=== PATIENT | female | born 1990 | race Caucasian/White ===

== ENCOUNTER 2017-10-03 18:09 | Emergency (ER) | payer OTHER ==
[2017-10-03 18:15] VITALS: BP 110/57; PULSE 63; TEMP 97.3; BMI 18.9
--- NOTE | 2017-10-03 18:46 | PDOC ---
Attending Attestation - Resident Resident Name: Dyllan Metz - ED Attending Attestation I have performed the following: I have examined & evaluated the patient, The case was reviewed & discussed with the resident, I agree w/resident's findings & plan, Exceptions are as noted - HPI HPI: 10/03/17 20:54 The patient is a 26 year old female approx. 18-19 weeks (), with no significant past medical history, who presents to the emergency department with, approx. 3 days of intermittent right sided abdominal discomfort. The patient describes the abdominal pain as a general discomfort. Reports discomfort is located just laterally to umbulicus on the R and does not radiate. Discomfort is not triggered by anything. Patient reports she has been eating regularly. However, she reports associated symptoms of constipation with her last bowel movement approx. four days ago, however states she normally has a BM every 3-4 days. Patient reports recent vaginal discharge described as a clear mucus. She reports being diagnosed with chlamydia in the past. She denies recent fevers, chills, headache or dizziness. She denies recent nausea, vomit, or diarrhea. She denies recent dysuria, frequency, urgency or hematuria. She denies recent chest pain or shortness of breath. Allergies: NKA Past surgical history: None reported. Primary Care Physician: Dr. Tracy Fraser - Physicial Exam PE: 10/03/17 20:55 GENERAL: Awake, alert, and fully oriented, in no acute distress HEAD: No signs of trauma EYES: PERRLA, EOMI, sclera anicteric, conjunctiva clear ENT: Auricles normal inspection, hearing grossly normal, nares patent, oropharynx clear without exudates. Moist mucosa NECK: Normal ROM, supple, no lymphadenopathy, JVD, or masses LUNGS: Breath sounds equal, clear to auscultation bilaterally. No wheezes, and no crackles HEART: Regular rate and rhythm, normal S1 and S2, no murmurs, rubs or gallops ABDOMEN: gravid uterus, fundus at about 1-2 cm below the umbulicus, completely nontender, normoactive bowel sounds. No guarding, no rebound. No masses PHYSICIAN PRACTICE MARKET MANAGER: see resident exam EXTREMITIES: Normal range of motion, no edema. No clubbing or cyanosis. No cords, erythema, or tenderness NEUROLOGICAL: Normal speech, cranial nerves intact, negative pronator drift, 5/ 5 strength in all 4 extremities, normal sensation to light touch in all 4 extremities, normal cerebellar exam, normal gait, normal reflexes and tone SKIN: Warm, Dry, normal turgor, no rashes or lesions noted. - Medical Decision Making 10/03/17 19:38 26yo F approx 18-19 weeks p/w R sided abdominal discomfort. Vitals wnl , exam unremarkable with no abdominal ttp. DDx includes UTI given location of pain vs STI given vaginal DC and hx of chlamydia vs ovarian pathology vs constipation vs complication of . Appendicitis also a thought, although pain is not in the RLQ and abd exam with no ttp. Will check labs, US, and UA and perform serial abd exams. Laboratory Results - last 24 hr 10/03/17 10/03/17 10/03/17 19:04 19:04 19:04 WBC 10.7 H RBC 4.60 Hgb 14.1 Hct 42.3 MCV 92.0 MCH 30.6 MCHC 33.2 RDW 13.2 Plt Count 211 MPV 8.7 Neutrophils % 75.8 Lymphocytes % 17.8 Monocytes % 5.4 Eosinophils % 0.6 Basophils % 0.4 PT with INR 10.90 INR 0.96 Sodium 138 Potassium 3.2 L Chloride 101 Carbon Dioxide 27 Anion Gap 10 BUN 6 L Creatinine 0.6 Creat Clearance w eGFR > 60 Random Glucose 59 L Calcium 9.0 Total Bilirubin 0.3 AST 21 ALT 17 Alkaline Phosphatase 82 Total Protein 8.3 H Albumin 3.8 Lipase 115 Urine Color Urine Appearance Urine pH Ur Specific [place] Urine Protein Urine Glucose (UA) Urine Ketones Urine Blood Urine Nitrite Urine Bilirubin Urine Urobilinogen Ur Leukocyte Esterase Urine WBC (Auto) Urine RBC (Auto) Ur Epithelial Cells Urine Bacteria Urine Mucus Blood Type Antibody Screen 10/03/17 10/03/17 19:04 19:20 WBC RBC Hgb Hct MCV MCH MCHC RDW Plt Count MPV Neutrophils % Lymphocytes % Monocytes % Eosinophils % Basophils % PT with INR INR Sodium Potassium Chloride Carbon Dioxide Anion Gap BUN Creatinine Creat Clearance w eGFR Random Glucose Calcium Total Bilirubin AST ALT Alkaline Phosphatase Total Protein Albumin Lipase Urine Color Ltyellow Urine Appearance Clear Urine pH 6.0 Ur Specific [place] 1.017 Urine Protein Negative Urine Glucose (UA) Negative Urine Ketones Negative Urine Blood Negative Urine Nitrite Negative Urine Bilirubin Negative Urine Urobilinogen 2.0 H Ur Leukocyte Esterase 2+ H Urine WBC (Auto) 5 Urine RBC (Auto) <1 Ur Epithelial Cells Rare Urine Bacteria Rare Urine Mucus Few Blood Type A POSITIVE Antibody Screen Negative 10/03/17 21:03 Labs with leukocytosis to 10.7 likely wnl in , otherwise labs normal. US wnl. UA with 2+ LE and 5 WBCs and rare bacteria therefore will treat with macrobid. Repeat abd exam x2 with no ttp. Discussed with patient the small chance that this could be appendicitis, but since we have another possible reason for her pain (UTI), that UTI is more likely. Advised pt that if discomfort becomes much worse, or migrates to RLQ or she develops fevers, chills , N/V/D that she should return immediately for further evaluation. She expresses understanding of the plan and requests DC. I discussed the physical exam findings, ancillary test results and final diagnoses with the patient. I answered all of the patient's questions. The patient was satisfied with the care received and felt comfortable with the discharge plan and treatment plan. The patient will call their primary care physician within 24 hours to arrange follow-up and will return to the Emergency Department with any new, persistent or worsening symptoms.
[2017-10-03] MEDS ORDERED: ACETAMINOPHEN 650 MG/20.3 ML ORAL SOLUTION (CUPS) ONE (19:00)
[2017-10-03] MEDS ORDERED: ACETAMINOPHEN 325 MG TABLET (FP) PO ONE (19:06)
[2017-10-03 19:11] LABS: BASO % 0.4 % (0-2.0); EOS % 0.6 % (0-4.5); HEMATOCRIT 42.3 % (32.4-45.2); HEMOGLOBIN 14.1 GM/dL (10.7-15.3); LYMPH % 17.8 % (8-40); MCH 30.6 pg (25.7-33.7); MCHC 33.2 g/dl (32.0-36.0); MEAN PLT VOLUME 8.7 fl (7.5-11.1); MONO % 5.4 % (3.8-10.2); NEUT % 75.8 % (42.8-82.8); PLATELET COUNT 211 K/MM3 (134-434); RDW 13.2 % (11.6-15.6); WHITE BLOOD COUNT 10.7 K/mm3 (4.0-10.0)
[2017-10-03 19:38] LABS: URINE APPEARANCE CLEAR; URINE BILIRUBIN NEGATIVE (NEGATIVE); URINE BLOOD NEGATIVE (NEGATIVE); URINE COLOR LTYELLOW; URINE GLUCOSE (UA) NEGATIVE (NEGATIVE); URINE KETONE NEGATIVE (NEGATIVE); URINE NITRITE NEGATIVE (NEGATIVE); URINE PROTEIN NEGATIVE (NEGATIVE)
[2017-10-03 19:39] LABS: URINE LEUK ESTERASE 2+ (NEGATIVE)
[2017-10-03 19:40] LABS: EPI CELLS RARE /HPF (FEW); URINE BACTERIA RARE /hpf (NONE SEEN); URINE MUCUS FEW
[2017-10-03 19:51] LABS: INR 0.96 (0.82-1.09); PROTHROMBIN TIME (PATIENT) 10.9 SEC (9.98-11.88)
[2017-10-03 20:10] LABS: ALBUMIN 3.8 g/dl (3.4-5.0); ANION GAP 10 (8-16); BLOOD UREA NITROGEN 6 mg/dL (7-18); CHLORIDE 101 mmol/L (98-107); CO2 27 mmol/L (21-32); CREATININE 0.6 mg/dL (0.55-1.02); GLUCOSE,RANDOM 59 mg/dL (74-106); LIPASE 115 U/L (73-393); POTASSIUM 3.2 mmol/L (3.5-5.1); SGOT/AST 21 U/L (15-37); SODIUM 138 mmol/L (136-145); TOT PROT 8.3 g/dl (6.4-8.2)
--- NOTE | 2017-10-03 20:18 | PDOC ---
History of Present Illness - General Chief Complaint: Pain Stated Complaint: 18 wks preg ABD PAIN Time Seen by Provider: 10/03/17 18:25 History Source: Patient Exam Limitations: No Limitations - History of Present Illness Initial Comments: 10/03/17 20:12 Patient is a 26F who is 18wks by ultrasound here today complaining of right sided abdominal pain for the past 2 days. She describes the pain as a discomfort that waxes and wanes. She's coming in today because it' s worse and lasting longer. She is also complaining of associated constipation, saying her last bowel movement was 4 days ago. She states that this is normal for her. She denies nausea, vomiting, decreased po intake, fevers and chills. She denies pain with urination. She denies vaginal bleeding, but states that she has had some clear vaginal discharge. Denies pelvic pain. Patient has OB follow up - Dr Garcia in [place]. Past History - Past Medical History Allergies/Adverse Reactions: Allergies Allergy/AdvReac Type Severity Reaction Status Date / Time No Known Allergies Allergy Verified 10/03/17 18:10 Home Medications: Ambulatory Orders Nitrofurantoin Monohyd/M-Cryst [Nitrofurantoin [place]-Mcr 100 mg] 100 mg PO BID # 14 capsule 10/03/17 COPD: No - Suicide/Smoking/Psychosocial Hx Smoking History: Never smoked Have you smoked in the past 12 months: No Information on smoking cessation initiated: No Hx Alcohol Use: No Drug/Substance Use Hx: No Substance Use Type: None Review of Systems - Review of Systems Comments:: 10/03/17 20:17 GENERAL/CONSTITUTIONAL: No fever or chills. No weakness. HEAD, EYES, EARS, NOSE AND THROAT: No change in vision. No sore throat. CARDIOVASCULAR: No chest pain or shortness of breath RESPIRATORY: No cough, wheezing, or hemoptysis. GASTROINTESTINAL: No nausea, vomiting, diarrhea. Positive for constipation. GENITOURINARY: No dysuria, frequency, or change in urination. MUSCULOSKELETAL: No joint or muscle swelling or pain. No neck or back pain. SKIN: No rash NEUROLOGIC: No headache, vertigo, loss of consciousness, or change in strength/ sensation. ENDOCRINE: No increased thirst. No abnormal weight change HEMATOLOGIC/LYMPHATIC: No anemia, easy bleeding, or history of blood clots. ALLERGIC/IMMUNOLOGIC: No hives or skin allergy. *Physical Exam - Vital Signs Last Vital Signs Temp Pulse Resp BP Pulse Ox 97.3 F L 63 18 110/57 100 10/03/17 18:11 10/03/17 18:11 10/03/17 18:11 10/03/17 18:11 10/03/17 18:11 - Physical Exam Comments: 10/03/17 20:18 GENERAL: Awake, alert, and fully oriented, in no acute distress HEAD: No signs of trauma, normocephalic, atraumatic EYES: PERRLA, EOMI, sclera anicteric, conjunctiva clear ENT: Auricles normal inspection, hearing grossly normal, nares patent, oropharynx clear without exudates. Moist mucosa LUNGS: No distress, speaks full sentences, clear to auscultation bilaterally HEART: Regular rate and rhythm, normal S1 and S2, no murmurs, rubs or gallops, peripheral pulses normal and equal bilaterally. ABDOMEN: Gravid uterus 2cm below umbilicus , nontender, normoactive bowel sounds. No guarding, no rebound. No masses EXTREMITIES: Normal inspection, Normal range of motion, no edema. No clubbing or cyanosis. NEUROLOGICAL: Cranial nerves II through XII grossly intact. Normal speech, normal gait, no focal sensorimotor deficits SKIN: Warm, Dry, normal turgor, no rashes or lesions noted. PELVIC: Normal external genitalia, no cmt, closed cervix, small amount of white discharge, no blood ED Treatment Course - LABORATORY CBC & Chemistry Diagram: 10/03/17 19:04 10/03/17 19:04 - ADDITIONAL ORDERS Additional order review: Laboratory Results 10/03/17 10/03/17 10/03/17 19:20 19:04 19:04 PT with INR 10.90 INR 0.96 Urine Color Ltyellow Urine Appearance Clear Urine pH 6.0 Ur Specific [place] 1.017 Urine Protein Negative Urine Glucose (UA) Negative Urine Ketones Negative Urine Blood Negative Urine Nitrite Negative Urine Bilirubin Negative Urine Urobilinogen 2.0 H Ur Leukocyte Esterase 2+ H Urine WBC (Auto) 5 Urine RBC (Auto) <1 Ur Epithelial Cells Rare Urine Bacteria Rare Urine Mucus Few Blood Type A POSITIVE Antibody Screen Negative 10/03/17 19:04 RBC 4.60 MCV 92.0 MCHC 33.2 RDW 13.2 MPV 8.7 Neutrophils % 75.8 Lymphocytes % 17.8 Monocytes % 5.4 Eosinophils % 0.6 Basophils % 0.4 - RADIOLOGY Radiology Studies Ordered: Category Date Time Status OB LIMITED US [US] Stat Ultrasound 10/03/17 19:11 Ordered TRANSVAGINAL ULTRASOUND US [US] Stat Ultrasound 10/03/17 18:44 Ordered - Medications Given in the ED: ED Medications Discontinued Medications Generic Name Dose Route Start Last Admin Trade Name Danae PRN Reason Stop Dose Admin Acetaminophen 650 mg 10/03/17 19:06 10/03/17 19:15 Tylenol - PO 10/03/17 19:07 650 mg ONCE ONE Administration Medical Decision Making - Medical Decision Making 10/03/17 20:18 Patient is 26F here today complaining of right sided abdominal pain. Vital signs stable and normal. Physical exam not remarkable. DDx includes, but is not limited to: abdominal pain related to , threatened , ovarian torsion, appendicitis, uti. Will evaluate with abdominal labs, type and screen, coags, transvaginal ultrasound, ob transabdominal ultrasound. 10/03/17 20:23 Laboratory Tests 10/03/17 10/03/17 19:04 19:20 WBC 10.7 H Hgb 14.1 Hct 42.3 Plt Count 211 Ur Leukocyte Esterase 2+ H Urine WBC (Auto) 5 Urine Bacteria Rare CBC normal. CMP shows K of 3.2. UA shows UTI, will treat with macrobid. 10/03/17 20:55 On serial abdominal exams, patient has remained nontender in her abdomen. Discussed risk of possible appendicitis given location of pain, but thought it unlikely given patient's examination. Return precautions given. Patient has good outpatient follow up, will follow up this week. *DC/Admit/Observation/Transfer Diagnosis at time of Disposition: Abdominal pain affecting - Discharge Dispostion Disposition: HOME Condition at time of disposition: Good Admit: No - Prescriptions Prescriptions: Nitrofurantoin Monohyd/M-Cryst [Nitrofurantoin [place]-Mcr 100 mg] 100 mg PO BID # 14 capsule - Referrals Referrals: Tracy Fraser MD [Primary Care Provider] - - Patient Instructions Printed Discharge Instructions: DI for Abdominal Pain -- Early Additional Instructions: Please return if you have any new, worsening or concerning symptoms, especially fever, vomiting, and increased abdominal pain. Please call to make an appointment with your primary care physician and obgyn physician on Thursday. - Post Discharge Activity
[2017-10-03 20:22] LABS: ALK PHOS 82 U/L (45-117); BILIRUBIN,TOTAL 0.3 mg/dL (0.2-1.0); SGPT/ALT 17 U/L (12-78)
[2017-10-03] MEDS ORDERED: NITROFURANTOIN MACROCRYSTAL 50 MG CAPSULE (FP) PO SCH (20:45)
[2017-10-03] MEDS ORDERED: POTASSIUM CHLORIDE TABS 20 MEQ TABLET.ER (FP) PO ONE ×2 (20:47→21:04)
[2017-10-03] MEDS ORDERED: NITROFURANTOIN MACROCRYSTAL 50 MG CAPSULE (FP) ONE (21:03)
[2017-10-03] MEDS ORDERED: POTASSIUM CHLORIDE TABS 10 MEQ TABLET.ER (FP) ONE (21:04)
== END 2017-10-03 21:13 | disposition home or self-care (01) ==
LOC: JER 18:09
DX: O26.892 Other specified pregnancy related conditions, second trimester (principal); O23.42 Unspecified infection of urinary tract in pregnancy, second trimester; Z3A.18 18 weeks gestation of pregnancy
CPT/HCPCS: 36415; 76815; 76830-TC; 80053; 81003; 81015; 83690; 85025; 85610; 86850; 86900; 86901; 87491; 87591; 99282-25

== ENCOUNTER 2018-02-10 20:05 | Inpatient (IN) | payer OTHER ==
[~2018-02-10 20:05] MED LIST: DINOPROSTONE 10 MG VAGINAL SUPPOSITORY VG ONE
[2018-02-10] MEDS: DEXTROSE 5%-LACTATED RINGERS 1,000 ML IV SCH (20:35)
[2018-02-10 21:29] VITALS: BMI 22.8
[2018-02-10 21:45] LABS: BASO % 0.3 % (0-2.0); EOS % 0.2 % (0-4.5); HEMATOCRIT 34.1 % (32.4-45.2); HEMOGLOBIN 11.5 GM/dL (10.7-15.3); LYMPH % 18.7 % (8-40); MCH 31.4 pg (25.7-33.7); MCHC 33.9 g/dl (32.0-36.0); MEAN CELL VOLUME 92.7 fl (80-96); MEAN PLT VOLUME 10.1 fl (7.5-11.1); MONO % 8.5 % (3.8-10.2); NEUT % 72.3 % (42.8-82.8); PLATELET COUNT 139 K/MM3 (134-434); RBC 3.67 M/mm3 (3.60-5.2); RDW 13.6 % (11.6-15.6); WHITE BLOOD COUNT 6.6 K/mm3 (4.0-10.0)
[2018-02-10] MEDS ORDERED: TUBERCULIN PPD 5 TU/0.1ML SYRINGE (IN PATIENT USE ONLY) ID ONE (21:45)
[2018-02-10] MEDS ORDERED: PROMETHAZINE HCL 25 MG/1 ML VIAL IVPUSH ONE (21:57)
[2018-02-10] MEDS ORDERED: BUTORPHANOL TARTRATE 1 MG/ML VIAL IVPB ONE (21:57)
--- NOTE | 2018-02-10 22:05 | PN ---
Progress Note (short form) - Note Progress Note: 27 y/o with SIUP at 37 weeks here with complaints of LOF. Pt grossly ruptured. As laborist production supervisor off shift, was asked to place cervidil for IOL. Cervix /-3 and membranes grossly ruptured for clear fluid. FHTS cat 1. Cervidil placed at this time, for reassess in 12 hours.
[2018-02-10 22:07] LABS: INR 0.95 (0.82-1.09); PROTHROMBIN TIME (PATIENT) 10.7 SEC (9.7-13.0)
[2018-02-10 22:10] LABS: ACTIVATED PTT 24.2 SECONDS (26.9-34.4)
[2018-02-10 22:17] LABS: ANION GAP 7 (8-16); BLOOD UREA NITROGEN 6 mg/dL (7-18); CALCIUM 8.3 mg/dL (8.5-10.1); CHLORIDE 106 mmol/L (98-107); CO2 26 mmol/L (21-32); CREATININE 0.6 mg/dL (0.55-1.02); GLUCOSE,RANDOM 123 mg/dL (74-106); POTASSIUM 3.7 mmol/L (3.5-5.1); SODIUM 139 mmol/L (136-145)
--- NOTE | 2018-02-10 23:08 | HP ---
Past Medical History - Admission Chief Complaint: Leaking fluid since 7:30 pm History of Present Illness: 27 y/o with SIUP at 37 weeks presents with leaking fluid since 7:30 pm. No contractions. +FM. uncomplicated. Medical history +for Scoliosis. Pt with normal in 2015. History Source: Patient, Medical Record Limitations to Obtaining History: No Limitations - Past Medical History Cardiovascular: No: HTN, Hyperlipdemia Gastrointestinal: No: GERD Renal/: No: UTI Reproductive: No: PID, Polycystic Ovary Syndrome ...: 2 ...Para: 1 ...Term: 1 ...EDC by Sono: 03/03/18 Infectious Disease: No: HIV Psych: No: Bipolar, Depression - Past Surgical History Past Surgical History: Yes: None Hx Myomectomy: No Hx Transabdominal Cerclage: No - Smoking History Smoking history: Never smoked Have you smoked in the past 12 months: No - Alcohol/Substance Use Hx Alcohol Use: No - Social History History of Recent Travel: No Home Medications - Allergies Allergies/Adverse Reactions: Allergies Allergy/AdvReac Type Severity Reaction Status Date / Time No Known Allergies Allergy Verified 10/03/17 18:10 - Home Medications Home Medications: Ambulatory Orders Vitamins (Sjr) - 1 tab PO DAILY 01/30/18 Review of Systems - Review of Systems Constitutional: reports: No Symptoms Eyes: reports: No Symptoms HENT: reports: No Symptoms Neck: reports: No Symptoms Cardiovascular: reports: No Symptoms Respiratory: reports: No Symptoms Gastrointestinal: reports: No Symptoms Genitourinary: reports: No Symptoms Breasts: reports: No Symptoms Reported Musculoskeletal: reports: No Symptoms Integumentary: reports: No Symptoms Neurological: reports: No Symptoms Endocrine: reports: No Symptoms Hematology/Lymphatic: reports: No Symptoms Psychiatric: reports: No Symptoms Physical Exam - Maternity Vital Signs: Vital Signs Temperature 98.9 F 02/10/18 20:05 Pulse Rate 79 02/10/18 22:00 Respiratory Rate 18 02/10/18 22:00 Blood Pressure 117/66 02/10/18 22:00 O2 Sat by Pulse Oximetry (%) Constitutional: Yes: Well Nourished, No Distress, Calm Eyes: Yes: Conjunctiva Clear, EOM Intact HENT: Yes: Atraumatic, Normocephalic Neck: Yes: Supple Breast(s): Yes: WNL - Abdominal Exam/OB Fundal Height: 37 Number of Fetuses: Single Presentation: Vertex Contractions: Yes Regularity: Irritability Heart Rate (range): 135 Category: I Accelerations: Uniform Decelerations: None - Vaginal Exam/OB Dilatation (cm): 1 Effacement (%): 50 Amniotic Membrane Status: Ruptured Nitrazine Test: Positive Amniotic Fluid: Yes: Clear Presentation: Vertex/Position Station: -2 - Physical Exam Psychiatric: Yes: Alert, Oriented - Labs Lab Results: CBC, BMP 02/10/18 21:10 02/10/18 21:10 Hemorrhage Risk Assessment - Risk Factors Medium Risk Factors: Yes: None High Risk Factors: Yes: None Risk Score: 1 Risk Level: Medium Risk Problem List - Problems (1) Rupture of membranes with clear amniotic fluid Code(s): DSX9442 - (2) Spontaneous rupture of amniotic membranes Code(s): ELE4022 - (3) Term Code(s): Z34.80 - ENCOUNTER FOR SUPRVSN OF NORMAL , UNSP TRIMESTER Assessment/Plan 27 y/o with SIUP at 37 weeks, SROM - AFVSS - FHTS cat 1 - labor induction 2/2 ROM - cervidil placed, to assess in 12 hours - analgesia prn - GBS negative
[2018-02-11] MEDS: DEXTROSE 5%-LACTATED RINGERS 1,000 ML IV SCH
[2018-02-11] MEDS ORDERED: BUTORPHANOL TARTRATE 1 MG/ML VIAL ONE ×2 (00:06)
[2018-02-11] MEDS ORDERED: PROMETHAZINE HCL 25 MG/1 ML VIAL ONE (00:06)
[2018-02-11] MEDS ORDERED: FENTANYL/BUPIVACAINE/NS/PF - PCEA - 50 ML DISP.SYRIN EP ONE (01:41)
[2018-02-11] MEDS ORDERED: OXYTOCIN 20 UNITS in 0.9% NS 20 UNIT/1,000 ML INFUS.BAG IV ONE ×2 (01:41→02:19)
[2018-02-11] MEDS ORDERED: LIDOCAINE HCL 1% PRESERVATIVE FREE - 30ML VIAL ONE (02:19)
[2018-02-11] MEDS ORDERED: NALOXONE HCL 0.4 MG/ML VIAL IVPUSH PRN (02:37)
[2018-02-11] MEDS ORDERED: BENZOCAINE 28 GM HEMORRHOIDAL OINTMENT TP PRN (02:41)
[2018-02-11] MEDS ORDERED: BENZOCAINE 20% 57 GM BOTTLE TP PRN (02:41)
[2018-02-11] MEDS ORDERED: WITCH HAZEL 50% (TUCKS) 40 PAD/JAR PAD TP PRN (02:41)
[2018-02-11] MEDS ORDERED: METHYLERGONOVINE MALEATE 0.2 MG/1 ML AMP IM PRN (02:41)
[2018-02-11] MEDS ORDERED: BISACODYL 10 MG SUPP.RECT RC PRN (02:41)
--- NOTE | 2018-02-11 02:41 | PN ---
Delivery - Delivery Vaginal Delivery: No Problems Type of Anesthesia: Epidural Episiotomy/Laceration: None EBL (cc): 250 Delivery, Single - Stages of Labor Date of Delivery: 02/11/18 Time of Delivery: 02:30 Date Placenta Delivered: 02/11/18 Time Placenta Delivered: :32 Placenta: Yes: Spontaneous - Condition of Forming Operator/Programmer Operator Numerical Control Present: No Gender: Male Position: Right, OA - 1 Minute Total Score: 9 5 Minutes Total Score: 9 - Feeding Plan Initial Plan: Elected not to breastfeed exclusively throughout hospitalization Remarks - Remarks Remarks: 27 y/o s/p normal of baby boy from FRANK position across intact perineum anterior shoulder (left) delivered with ease along with remainder of cord clamped and cut mouth and nose bulb suctioned placenta delivered spontaneously and in tact sponge count correct after delivery mom stable baby to well baby nursery
[2018-02-11] MEDS ORDERED: FENTANYL/BUPIVACAINE/NS/PF - PCEA - 50 ML DISP.SYRIN EP SCH (02:45)
[2018-02-11] MEDS ORDERED: OXYTOCIN 20 UNITS in 0.9% NS 20 UNIT/1,000 ML INFUS.BAG IV SCH (02:45)
[2018-02-11] MEDS: ACETAMINOPHEN 325 MG TABLET (FP) PO PRN ×5 (04:38→22:20)
[2018-02-11] MEDS: IBUPROFEN 600 MG TABLET (FP) PO PRN ×5 (04:39→22:19)
[2018-02-11] MEDS: FERROUS SO4 325 MG TABLET (FP) PO SCH ×3 (07:16→17:45)
[2018-02-11] MEDS: PRENATAL VITAMINS W/ FOLIC ACID TABLET (FP) PO SCH (09:53)
[2018-02-12] MEDS: IBUPROFEN 600 MG TABLET (FP) PO PRN ×2 (03:18→16:16)
[2018-02-12] MEDS: ACETAMINOPHEN 325 MG TABLET (FP) PO PRN ×2 (03:18→16:17)
[2018-02-12 07:28] LABS: BASO % 0.4 % (0-2.0); EOS % 1.4 % (0-4.5); HEMATOCRIT 32.1 % (32.4-45.2); HEMOGLOBIN 11.3 GM/dL (10.7-15.3); LYMPH % 27.5 % (8-40); MCH 32.5 pg (25.7-33.7); MEAN CELL VOLUME 92.8 fl (80-96); MEAN PLT VOLUME 9.4 fl (7.5-11.1); MONO % 8.8 % (3.8-10.2); NEUT % 61.9 % (42.8-82.8); PLATELET COUNT 109 K/MM3 (134-434); RBC 3.46 M/mm3 (3.60-5.2); RDW 13.8 % (11.6-15.6); WHITE BLOOD COUNT 7.3 K/mm3 (4.0-10.0)
[2018-02-12] MEDS: FERROUS SO4 325 MG TABLET (FP) PO SCH ×3 (08:57→17:45)
--- NOTE | 2018-02-12 09:57 | PN ---
Post Progress Note - Subjective Subjective: 27 yo Para 2 status post vaginal delivery, seen and evaluated. Doing well. Post Day: 2 Type of Delivery: Vital Signs: Vital Signs Temperature 98.6 F 02/11/18 21:00 Pulse Rate 78 02/11/18 21:00 Respiratory Rate 20 02/11/18 21:00 Blood Pressure 92/53 02/11/18 21:00 O2 Sat by Pulse Oximetry (%) 100 02/11/18 03:35 Breast Exam: Yes: Soft Uterus: Yes: Fundus Firm Abdomen/GI: Yes: Abdomen soft, Tolerating PO Lochia: Yes: Rubra Lochia, amount: Moderate Extremities: Yes: Calves non-tender Perineum: Yes: Intact Activity: Ambulating - Labs Labs: CBC WBC 7.3 K/mm3 (4.0-10.0) 02/12/18 06:35 RBC 3.46 M/mm3 (3.60-5.2) L 02/12/18 06:35 Hgb 11.3 GM/dL (10.7-15.3) 02/12/18 06:35 Hct 32.1 % (32.4-45.2) L 02/12/18 06:35 MCV 92.8 fl (80-96) 02/12/18 06:35 MCH 32.5 pg (25.7-33.7) 02/12/18 06:35 MCHC 35.0 g/dl (32.0-36.0) 02/12/18 06:35 RDW 13.8 % (11.6-15.6) 02/12/18 06:35 Plt Count 109 K/MM3 (134-434) L D 02/12/18 06:35 MPV 9.4 fl (7.5-11.1) 02/12/18 06:35 Neutrophils % 61.9 % (42.8-82.8) 02/12/18 06:35 Lymphocytes % 27.5 % (8-40) D 02/12/18 06:35 Monocytes % 8.8 % (3.8-10.2) 02/12/18 06:35 Eosinophils % 1.4 % (0-4.5) D 02/12/18 06:35 Basophils % 0.4 % (0-2.0) 02/12/18 06:35 Problem List - Problems (1) Status post normal vaginal delivery Code(s): [id number] - Assessment/Plan Status post vaginal deliver Stable Continue routine care
[2018-02-12] MEDS ORDERED: DIPHTH,PERTUSS(ACELL),TET 0.5 ML DISP.SYRIN IM ONE (10:00)
[2018-02-12] MEDS: PRENATAL VITAMINS W/ FOLIC ACID TABLET (FP) PO SCH (10:09)
[2018-02-12] MEDS ORDERED: SENNOSIDES/DOCUSATE COMBO (SENNA PLUS) TABLET (UD) PO PRN (22:00)
[2018-02-13] MEDS: FERROUS SO4 325 MG TABLET (FP) PO SCH ×2 (08:06→12:45)
[2018-02-13] MEDS: IBUPROFEN 600 MG TABLET (FP) PO PRN ×2 (08:07→12:04)
--- NOTE | 2018-02-13 08:20 | DS ---
Physical Exam-SLPS Vital Signs: Vital Signs Temperature 97.5 F L 02/12/18 20:43 Pulse Rate 65 02/12/18 20:43 Respiratory Rate 18 02/12/18 20:43 Blood Pressure 126/80 02/12/18 20:43 O2 Sat by Pulse Oximetry (%) 100 02/11/18 03:35 Constitutional: Yes: Well Nourished, No Distress, Calm Eyes: Yes: WNL, Conjunctiva Clear HENT: Yes: WNL, Atraumatic, Normocephalic Neck: Yes: WNL, Supple, Trachea Midline Cardiovascular: Yes: WNL, Regular Rate and Rhythm Respiratory: Yes: WNL, Regular Gastrointestinal: Yes: WNL, Normal Bowel Sounds ...Rectal Exam: Yes: Deferred Renal/: Yes: WNL Pelvis: Yes: WNL External Genitalia: Yes: Normal Internal Exam Deferred: Yes Uterus: Yes: Firm ....Post : Yes: Uterus firm, Uterus non-tender Breast(s): Yes: WNL Musculoskeletal: Yes: WNL Extremities: Yes: WNL Edema: No Integumentary: Yes: WNL Wound/Incision: Yes: Clean/Dry, Well Approximated Neurological: Yes: WNL, Alert, Oriented ...Motor Strength: WNL Psychiatric: Yes: WNL, Alert, Oriented Labs: CBC, BMP 02/12/18 06:35 02/10/18 21:10 Delivery - Delivery Vaginal Delivery: No Problems Type of Anesthesia: Epidural Episiotomy/Laceration: None EBL (cc): 250 Delivery, Single - Stages of Labor Date 1st Stage Initiatied: 02/10/18 Time 1st Stage Initiated: 23:00 Date 2nd Stage Initiated: 02/11/18 Time 2nd Stage Initiated: 02:20 Date of Delivery: 02/11/18 Time of Delivery: 02:30 Time Placenta Delivered: 02:32 Placenta: Yes: Spontaneous - Condition of Passenger Car Upholsterer Apprentice/Lead Shipper Present: [place]: Theo Garcia Infant Gender: Male Weight: 5 lb 15 oz Position: Right, OA Total Hours ROM (Hrs/Mins): 7hrs/2min - 1 Minute Total Score: 9 5 Minutes Total Score: 9 - Feeding Plan Initial Plan: Elected not to breastfeed exclusively throughout hospitalization Discharge Summary Reason For Visit: LABOR Current Active Problems Rupture of membranes with clear amniotic fluid (Acute) Spontaneous rupture of amniotic membranes (Acute) Status post normal vaginal delivery (Acute) Term (Acute) Condition: Good - Instructions Diet, Activity, Other Instructions: regular diet . ambulate ad maddi motrin 600mg prn pain Disposition: HOME - Home Medications Comprehensive Discharge Medication List: Ambulatory Orders Vitamins (Sjr) - 1 tab PO DAILY 01/30/18
[2018-02-13 09:26] VITALS: BP 101/58; PULSE 73; TEMP 99.1
[2018-02-13] MEDS: PRENATAL VITAMINS W/ FOLIC ACID TABLET (FP) PO SCH (09:32)
== END 2018-02-13 12:30 | disposition home or self-care (01) | DRG 560 ==
LOC: JLDR 20:05 → J3W 02-11 04:01
PROVIDERS: ADMIT Obstetrics & Gynecology; ATTEND Obstetrics & Gynecology
PROC: 10E0XZZ Delivery of Products of Conception, External Approach (ICD-10-PCS; principal; 2018-02-11)
DX: O26.893 Other specified pregnancy related conditions, third trimester (principal); M41.9 Scoliosis, unspecified; Z3A.37 37 weeks gestation of pregnancy; Z37.0 Single live birth
CPT/HCPCS: 36415; 59409; 80048; 85025; 85610; 85730; 86593; 86850; 86900; 86901; 90715

== ENCOUNTER 2022-09-05 09:12 | Emergency (ER) | payer OTHER ==
[2022-09-05 09:19] VITALS: BP 112/70; PULSE 98; RESP 20; TEMP 101.8; BMI 22.3
[2022-09-05] MEDS ORDERED: IBUPROFEN 400 MG TABLET (FP) PO ONE ×2 (09:43→09:51)
== END 2022-09-05 11:18 | disposition home or self-care (01) ==
LOC: FER 09:12
DX: U07.1 COVID-19 (principal)
CPT/HCPCS: 99283-25

== ENCOUNTER 2022-09-28 20:21 | Emergency (ER) | payer OTHER ==
[2022-09-28 20:33] VITALS: BP 106/74; PULSE 68; RESP 18; TEMP 98; BMI 22.3
== END 2022-09-28 21:29 | disposition home or self-care (01) ==
LOC: FER 20:21
DX: N94.6 Dysmenorrhea, unspecified (principal)
CPT/HCPCS: 81025; 99283-25

== ENCOUNTER 2022-10-14 18:35 | Emergency (ER) | payer OTHER ==
[2022-10-14 18:46] VITALS: BP 102/64; PULSE 75; RESP 20; TEMP 97.5; BMI 22.3
[2022-10-14 22:08] LABS: BASO % 0.6 % (0-2.0); HEMATOCRIT 36.1 % (32.4-45.2); HEMOGLOBIN 12.1 GM/dL (10.7-15.3); LYMPH % 29.9 % (8-40); MCH 30.4 pg (25.7-33.7); MCHC 33.5 g/dl (32.0-36.0); MEAN CELL VOLUME 90.6 fl (80-96); MEAN PLT VOLUME 8.7 fl (7.5-11.1); MONO % 5.8 % (3.8-10.2); NEUT % 62.7 % (42.8-82.8); PLATELET COUNT 233 10^3/uL (134-434); RBC 3.99 M/mm3 (3.60-5.2); RDW 13.4 % (11.6-15.6); WHITE BLOOD COUNT 7.8 K/mm3 (4.0-10.0)
[2022-10-14 22:09] LABS: INR 1.04 (0.83-1.09)
[2022-10-14 22:12] LABS: ACTIVATED PTT 31.2 SECONDS (25.2-36.5)
[2022-10-14 22:14] LABS: ALBUMIN 3.6 g/dl (3.4-5.0)
[2022-10-14 22:15] LABS: MAGNESIUM 1.9 mg/dL (1.8-2.4)
[2022-10-14 22:18] LABS: CREATININE 0.9 mg/dL (0.55-1.3)
[2022-10-14 22:34] LABS: BILIRUBIN,TOTAL 0.2 mg/dL (0.2-1)
== END 2022-10-14 23:01 | disposition home or self-care (01) ==
LOC: JER 18:35
DX: R00.2 Palpitations (principal)
CPT/HCPCS: 36415; 80053; 83735; 84443; 84484; 85025; 85610; 85730; 93005; 93010; 99284-25